=== PATIENT | male | born 1955 | race Caucasian/White ===

== ENCOUNTER 2020-04-10 19:01 | Emergency (ER) | payer MEDICARE, OTHER, SELFPAY ==
--- NOTE | 2020-04-10 19:10 | ED.ABDPAIN ---
HPI - Abdominal Pain General Chief Complaint: Nausea/Vomiting/Diarrhea Stated Complaint: diarrhea/vomiting Time Seen by Provider: 04/10/20 19:23 Source: patient and RN notes reviewed Mode of arrival: ambulatory Limitations: no limitations History of Present Illness HPI narrative: This is a 65 years old male presents to the office for an evaluation of diarrhea for two days. He had sloppy Santana on wednesday night and woke up Wednesday with stomach upset and then diarrhea. Diarrhea has stopped since this morning and he felt better so he tried Chicken sandwich; which made him felt sick again. Associated with nausea and vomiting. He tried piece of toast with butter which he could not keep it down either. Denies sick contact. Denies fever. Denies recent travel. Related Data Home Medications Medication Instructions Recorded Confirmed allopurinol 300 mg DAILY 04/10/20 04/10/20 losartan 50 mg DAILY 04/10/20 04/10/20 metoprolol tartrate 50 mg PO DAILY 04/10/20 04/10/20 Allergies Allergy/AdvReac Type Severity Reaction Status Date / Time No Known Allergies Allergy Verified 04/10/20 19:27 Review of Systems Review of Systems: Narrative: CONSTITUTIONAL: Denies fever ENT: Denies congestion CARDIOVASCULAR: Denies chest pain RESPIRATORY: Denies cough GASTROINTESTINAL: reports abdominal pain, nausea, vomiting, diarrhea. Denies bloody/coffee brown stools GENITOURINARY: Denies urinary symptoms SKIN: Denies rash MUSCULOSKELETAL: Denies acute back pain NEUROLOGIC: Denies lightheaded PMFSH Past Medical History Medical History (Updated 04/10/20 @ 19:44 by SUMAYA Qureshi) HTN (hypertension) Social History Social History (Updated 04/10/20 @ 19:45 by SUMAYA Qureshi) Smoking status: Never smoker Gender identity (if verbalized by the patient): Male Comments At time of signature, I agree with nursing past medical, surgical, social and family history. There is no relevant family history pertinent to the presenting complaint. Exam Narrative: Exam Narrative: GENERAL: This is a well-nourished, well-developed patient, in no apparent distress. CARDIOVASCULAR: Regular rate and rhythm without murmurs, gallops, or rubs. RESPIRATORY: Clear to auscultation. Breath sounds equal bilaterally. No wheezes, rales, or rhonchi. GASTROINTESTINAL: obese, abdomen soft, non-tender, nondistended. Bowel sounds hyperactive. No hepato-splenomegaly, or palpable masses. SKIN: warm, intact with no suspicious lesions or rash, good texture and turgor. NEURO: awake, alert, and oriented to person, place and time. There were no obvious focal neurologic abnormalities. Steady gait EXTREMITIES: Normal range of motion. No edema. [place] Coma Scale Eye Opening: Spontaneous 4 Jennifer Coma Scale Motor: Obeys Commands 6 Jennifer Coma Scale Verbal: Oriented 5 MDM - Abdominal Pain MDM Narrative Medical decision making narrative: Discharge instructions reviewed with patient, as well as provided in writing per nursing staff. The instructions also include specific and strict return/GO TO THE ER as well as f/u information. All questions have been answered, and the patient deny any further questions with discharge and discharge plan. Differential Diagnosis Differential diagnosis: Likely abdominal pain, acute appendicitis, calculus of kidney, constipation, diverticulitis, gastroenteritis, pancreatitis and small bowel obstruction Critical Care Time Critical Care Time Critical Care Time: No Discharge Plan Discharge Clinical Impression: Vomiting and diarrhea Patient Disposition: Home, Self-Care Condition: Stable Instructions: Acute Diarrhea (ED) Additional Instructions: Clear liquids for the [id number] hours, then advance to a bland diet as tolerated A bland diet can consist of--BRAT diet which is bananas, rice, applesauce, and toast Avoid fried, greasy, fatty, fried foods Avoid caffeine, nicotine, and alcohol Increase fluid intake: fluid should co
[2020-04-10 19:17] VITALS: BP 141/94; PULSE 84; RESP 20; TEMP 36.9; O2SAT 94
== END 2020-04-10 19:43 | disposition home or self-care (01) ==
PROVIDERS: Emergency Provider Nurse Practitioner; PCP Physician Assistant
DX: R19.7 Diarrhea, unspecified (principal); R11.10 Vomiting, unspecified; I10 Essential (primary) hypertension
CPT/HCPCS: 99213; G0463

== ENCOUNTER 2024-02-14 08:08 | Outpatient (CLI) | payer MEDICARE, SELFPAY ==
[2024-03-02 12:06] VITALS: BMI 43.2
--- NOTE | 2024-03-02 12:06 | WPDSLEEPSTUD ---
Sleep Study Date of Study: 02/14/24 Ordering Provider: Kaylie Reardon Interpreting Physician: Inocencia Anaya DO Sleep Study Type: CPAP Titration Height: 1.8 m Weight: 140.614 kg Body Mass Index: 43.2 Neck Circumference (inches): 19 [place]: 12 Reason for Sleep Study Home study done on 04/28/2019 severe JAYCOB. PAP Titration on 08/01/2019 showed optimal pressure of 17 cm H2O. Currently compliant on 17 cm H2O. Compliance data showed residual AHI less than 5. Nocturnal oximetry on 02/02/2024 showed that the patient spent 56 minutes with an oxygen saturation below 88%. Sleep History The patient is a 68-year-old male with severe sleep apnea on CPAP that had a sleep study ordered by his ENT physician for low oxygen saturation despite being on CPAP. The patient occasionally awakens from sleep short of breath. He denies awakening at night with heartburn, belching or cough. He occasionally has trouble sleeping when he has a cold. He denies waking up gasping for air throughout the night. He denies having breathing problems at night observed by himself or others. He rarely sweats excessively at night. He denies having heart palpitations or irregular heartbeats during the night. He constantly falls asleep during the day but never while driving. He denies sleep paralysis, cataplexy and hypnagogic / hypnopompic hallucinations. He rarely has trouble at school or work due to sleepiness. He denies feeling afraid of going to sleep. He rarely has nightmares. He rarely remembers his dreams. He frequently has thoughts racing. With. He rarely feels sad or depressed. He occasionally has anxiety. He rarely has muscular tension. He denies noticing parts of his body jerk. He denies kicking during the night. He denies having crawling and aching feelings in his legs and occasionally has leg pain during the night. He denies awakening with morning jaw pain. He is occasionally bothered by pain during the day occasionally awakened by pain during the night. He rarely wakes up feeling stiff. He occasionally wakes up with sore or achy muscles. He denies waking up with pain in the neck, spine and other joints. He goes to bed at 9:30 p.m. on weekdays and at 10:00 p.m. on the weekends. He wakes up 1-2 times throughout the night to urinate. He wakes up at 4:30 a.m. on weekdays and 5:30 a.m. on the weekends. He typically gets 6 hours of sleep per night. He will stay in bed for 5 minutes after waking up in the morning. He currently lives with his . He denies consuming any caffeinated beverages within 2 hours of bedtime. He denies engaging in physical exercise before bedtime. He will read before falling asleep. He will watch television before falling asleep. He will take unintentional naps in the afternoon or the evening with they are not refreshing. He consumes 1 caffeinated beverage per day. He quit smoking cigarettes 30 years ago. He denies alcohol and recreational drug use. [facility] Past Medical History Medical History HTN (hypertension) Social History Social History Smoking status: Never smoker Gender identity (if verbalized by the patient): Male Medications Home Medications Medication Instructions Recorded Confirmed Type allopurinol 300 mg tablet 300 mg DAILY 04/10/20 04/10/20 History dicyclomine 10 mg capsule 10 mg PO TID PRN stomach cramping 04/10/20 Rx #15 caps losartan 50 mg tablet 50 mg DAILY 04/10/20 04/10/20 History metoprolol tartrate 50 mg tablet 50 mg PO DAILY 04/10/20 04/10/20 History ondansetron HCl 4 mg tablet 4 mg PO Q6H PRN nausea and 04/10/20 Rx (Zofran) vomiting #10 tabs Sleep Procedure A full night polysomnogram using the [employer] multi-channel system recorded the standard physiologic parameters including EEG, EOG, submentalis EMG, anterior tibialis EMG, EKG, body position, nasal
== END 2024-02-15 06:09 | disposition home or self-care (01) ==
LOC: ANHCSM 08:09
PROVIDERS: PCP Physician Assistant
DX: G47.33 Obstructive sleep apnea (adult) (pediatric) (principal)
CPT/HCPCS: 95811